=== PATIENT | male | born 1970 | race Caucasian/White ===

== ENCOUNTER 2017-09-05 09:07 | Emergency (ER) | payer SELFPAY ==
[2017-09-05 09:17] VITALS: BP 140/103
--- NOTE | 2017-09-05 10:14 | UC ---
Abdominal Pain Male HPI - HPI Summary HPI Summary: Started feeling nausea, chills, abdominal cramping 4 nights ago, then for the next 3 days had loose stool up to 5 times per day with ongoing cramping and nausea and chills. No vomiting, poor appetite, feels that this morning symptoms have started to improve, better appetite with stools normalizing. - History of Current Complaint Chief Complaint: UCGeneralIllness Stated Complaint: FEVER,SWEATS Time Seen by Provider: 09/05/17 09:43 Hx Obtained From: Patient Onset/Duration: Gradual Onset, Lasting Days Timing: Constant Severity Initially: Moderate Severity Currently: Mild Pain Intensity: 0 Location: Diffuse Radiates: No Character: Cramping Aggravating Factor(s): Food Alleviating Factor(s): Nothing Associated Signs And Symptoms: Positive: Diaphoresis, Decreased Appetite, Nausea , Diarrhea. Negative: Constipation, Blood in Stool, Urinary Symptoms, Vomiting - Allergies/Home Medications Allergies/Adverse Reactions: Allergies Allergy/AdvReac Type Severity Reaction Status Date / Time No Known Allergies Allergy Verified 09/05/17 09:17 PMH/Surg Hx/FS Hx/Imm Hx Previously Healthy: Yes - Surgical History Surgical History: None - Family History Known Family History: Positive: Hypertension - Social History Lives: With Family Alcohol Use: Weekly Substance Use Type: Marijuana Substance Use Comment - Amount & Last Used: Daily Smoking Status (MU): Never Smoked Tobacco Review of Systems Constitutional: Negative Skin: Negative Eyes: Negative ENT: Negative Respiratory: Negative Cardiovascular: Negative Gastrointestinal: Abdominal Pain, Diarrhea Genitourinary: Negative Motor: Negative Neurovascular: Negative Musculoskeletal: Negative Neurological: Negative Psychological: Negative Is Patient Immunocompromised?: No All Other Systems Reviewed And Are Negative: Yes Physical Exam Triage Information Reviewed: Yes Appearance: Well-Appearing, No Pain Distress, Well-Nourished Vital Signs: Initial Vital Signs Temp 97.4 F 09/05/17 09:10 Pulse 63 09/05/17 09:10 Resp 18 09/05/17 09:10 BP 140/103 09/05/17 09:10 Pulse Ox 97 09/05/17 09:10 Vital Signs Reviewed: Yes Eye Exam: Normal Eyes: Positive: Conjunctiva Clear ENT Exam: Normal ENT: Positive: Normal ENT inspection, Hearing grossly normal, Pharynx normal, TMs normal. Negative: TM bulging, TM dull, TM red Dental Exam: Normal Dental: Negative: Percussion Tenderness @, Gross Decay/Caries @ Neck exam: Normal Respiratory Exam: Normal Respiratory: Positive: Chest non-tender, Lungs clear, Normal breath sounds, No respiratory distress, No accessory muscle use Cardiovascular Exam: Normal Cardiovascular: Positive: RRR, No Murmur Abdomen Description: Positive: Nontender, Soft. Negative: CVA Tenderness (R), CVA Tenderness (L) Musculoskeletal Exam: Normal Neurological Exam: Normal Neurological: Positive: Alert Psychological Exam: Normal Skin Exam: Normal Abd Pain Male Course/Dx - Differential Dx/Clinical Impression Provider Diagnoses: acute gastroenteritis. elevated blood pressure without diagnosis of hypertension Discharge - Discharge Plan Condition: Stable Disposition: HOME Prescriptions: Prochlorperazine TAB* [Compazine Tab*] 5 - 10 mg PO Q8H PRN #10 tab PRN Reason: Nausea Patient Education Materials: Gastroenteritis (ED) Referrals: No Primary Care Phys,NOPCP [Primary Care Provider] - Additional Instructions: As we discussed, your symptoms are quite normal for a viral gastroenteritis and should continue to improve from here. No further testing is needed at this moment. If you develop blood in your stool, worsening belly pain, or other worsening symptoms, please call or come back.
== END 2017-09-05 10:30 | disposition home or self-care (01) ==
LOC: UCEAST 09:07
DX: K52.9 Noninfective gastroenteritis and colitis, unspecified (principal); R03.0 Elevated blood-pressure reading, without diagnosis of hypertension; R61 Generalized hyperhidrosis
CPT/HCPCS: 99202; G0463

== ENCOUNTER 2017-11-19 10:33 | Emergency (ER) | payer SELFPAY ==
[2017-11-19 10:43] VITALS: BP 141/102
--- NOTE | 2017-11-19 12:27 | UC ---
Magdaleno Cook Stephanie, scribed for Priyank Madrid MD on 11/19/17 at 1217 . Hand/Wrist HPI - HPI Summary HPI Summary: In room note: The pt is a 47 y/o M presenting to with c/o a red area to the R hand that began about 5 weeks ago. The pt states the area swells and bleeds occasionally. The pt denies other physical problems. The pt states he has been experiencing recent occupational stress. He denies N/V/D, cough and fever. MD note: 47 y/o M with painless erythema to the R webbed space. Vital signs stable. BP noted at 141/102. Visit hx notable for follicular cyst on the scalp excised on 07/26/14. Nurse Note: Pt has a red area to R webbing area to thumb area. pt states this area has gotten larger and it seemed to grow and shrink. pt has no pain. - History Of Current Complaint Chief Complaint: UCUpperExtremity Stated Complaint: HAND INJURY Time Seen by Provider: 11/19/17 11:26 Hx Obtained From: Patient ?: No Onset/Duration: Sudden Onset, Lasting Weeks - 5, Still Present Severity Currently: Mild Pain Intensity: 0 Pain Scale Used: 0-10 Numeric Aggravating Factor(s): Other - NOTHING Alleviating Factor(s): Nothing Associated Signs And Symptoms: Positive: Redness. Negative: Fever - Allergies/Home Medications Allergies/Adverse Reactions: Allergies Allergy/AdvReac Type Severity Reaction Status Date / Time No Known Allergies Allergy Verified 11/19/17 10:43 Home Medications: Home Medications NK [No Home Medications Reported] 11/19/17 [History Confirmed 11/19/17] PMH/Surg Hx/FS Hx/Imm Hx Previously Healthy: Yes - The pt denies past medical hx. - Surgical History Surgical History: None - Family History Known Family History: Positive: Other - prostate cancer, colon cancer Negative: Hypertension, Diabetes - Social History Occupation: Employed Full-time Lives: Alone Alcohol Use: Weekly Substance Use Type: Marijuana Substance Use Comment - Amount & Last Used: weekly Smoking Status (MU): Never Smoked Tobacco Review of Systems Constitutional: Negative Skin: Other - red area on R hand Eyes: Negative ENT: Negative Respiratory: Negative Cardiovascular: Negative Gastrointestinal: Negative Genitourinary: Negative Motor: Negative Neurovascular: Negative Musculoskeletal: Negative Neurological: Negative Psychological: Negative All Other Systems Reviewed And Are Negative: Yes - Comments Additional Review of Systems Comments: Negative: N/V/D, cough, fever Positive: red raised area on R hand Physical Exam - Summary Physical Exam Summary: Appearance: The patient is well-appearing, is in no pain distress, and is well- nourished. Eyes: Conjunctiva are clear. ENT: The hearing is grossly normal, the pharynx is normal, and the TMs are normal. There is no muffled or hoarse voice. Neck: The neck is supple and there is no lymphadenopathy. Respiratory: The chest is nontender. The lungs are clear, there are normal breath sounds, and there is no respiratory distress. Cardiovascular: Heart is regular rate and rhythm. There is no murmur. Abdomen: The abdomen is soft and nontender. There is no organomegaly. Bowel sounds: present Musculoskeletal: Strength is intact. The patient moves all extremities. Neurological: The patient is alert. Psychological: The patient displays age appropriate behavior Skin: Negative for rashes. 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 LESION IS DOME-SHAPED AND FRIABLE. Triage Information Reviewed: Yes Vital Signs: Initial Vital Signs Temp 98.8 F 11/19/17 10:40 Pulse 86 11/19/17 10:40 Resp 18 11/19/17 10:40 BP 141/102 11/19/17 10:40 Pulse Ox 98 11/19/17 10:40 Vital Signs Reviewed: Yes Hand/Wrist Course/Dx - Course Course Of Treatment: Medications have been included in the original chart and reviewed. Hypertensive BP reading (>=140/90); patient referred to PCP within 1 day - 4 weeks for follow up. HEALTHY 47 Y/O WHO DOES NOT HAVE GENERAL MEDICAL CARE AND APPARENTLY IS HYPERTENSIVE. C/O RAPIDLY GROWING RED PAPULE BURIED ON THE WEBBED SPACE OF THE R HAND. PHYSICIAN WILL REFER THE PT TO FIND GENERAL MEDICAL CARE WELL TO DERMATOLOGY TO TREAT THE PYOGENIC GRANULOMA. - Differential Dx/Diagnosis Differential Diagnosis/HQI/PQRI: Other - PYOGENIC GRANULOMA VS OTHER Provider Diagnoses: PYOGENIC GRANULOMA, R HAND Discharge - Sign-Out/Discharge Documenting (check all that apply): Discharge/Admit/Transfer - discharge - Discharge Plan Condition: Stable Disposition: HOME Patient Education Materials: Furunculosis and Carbunculosis (ED) Referrals: [facility] [place] [facility] [Outside] - 3 Days Casper Beebe MD [Medical Doctor] - Additional Instructions: WE DISCUSSED: 1. You have a pyogenic granuloma. This is a frequent problem and there are a number of ways to treat it. 2. Call dermatology for treatment of this condition. 3. Also call [facility] [place] Phys[place] Referral for general medical care for your hypertension. 4. I have given you instructions about infections of the skin. Watch for any signs of infection. 5. 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 - Billing Disposition and Condition Condition: STABLE Disposition: HOME The documentation as recorded by the Magdaleno savage Stephanie accurately reflects the service I personally performed and the decisions made by me, Priyank Madrid MD.
== END 2017-11-19 12:27 | disposition home or self-care (01) ==
LOC: UCEAST 10:33
DX: L98.0 Pyogenic granuloma (principal)
CPT/HCPCS: 99212; G0463